=== PATIENT | male | born 1995 | race Caucasian/White ===

== ENCOUNTER 2021-11-23 22:35 | Emergency (ER) | payer OTHER ==
[2021-11-24] MEDS ORDERED: Ondansetron ODT 4 MG TAB ONE (00:35)
[2021-11-24] MEDS ORDERED: Ketorolac Tromethamine 10 MG TAB PO SCH (01:00)
== END 2021-11-24 01:12 | disposition home or self-care (01) ==
LOC: CSHERS 22:35
DX: S13.4XXA Sprain of ligaments of cervical spine, initial encounter (principal); S33.5XXA Sprain of ligaments of lumbar spine, initial encounter; R42 Dizziness and giddiness; V49.49XA Driver injured in collision with other motor vehicles in traffic accident, initial encounter; Y92.410 Unspecified street and highway as the place of occurrence of the external cause
CPT/HCPCS: 70450; 72040; 72100; Q0162